=== PATIENT | male | born 1975 | race Caucasian/White ===

== ENCOUNTER 2018-02-05 10:10 | Emergency (ER) | payer BC, OTHER ==
--- NOTE | 2018-02-05 11:05 | EDM.PDOC ---
ED HPI GENERAL MEDICAL PROBLEM - General Chief Complaint: Lower Extremity Injury/Pain Stated Complaint: left foot injury Time Seen by Provider: 02/05/18 10:45 Source of Information: Reports: Patient History Limitations: Reports: No Limitations - History of Present Illness INITIAL COMMENTS - FREE TEXT/NARRATIVE: Patient is a 42-year-old male who comes in with crush injury to left foot patient was working at [employer] at [employer] and a [employer] and weighed about 250 pounds fell on his foot is deformed the left foot patient complained of moderate pain at this time patient was examined and treated Onset: Today, Sudden Duration: Hour(s):, Constant Location: Reports: Lower Extremity, Left Quality: Reports: Throbbing (Pain 6 out of 10) Severity: Moderate Improves with: Reports: Cold Therapy, Other (Elevation) Worsens with: Reports: Movement Context: Reports: Trauma Associated Symptoms: Reports: No Other Symptoms Treatments [employer]: Reports: NSAIDS Left Foot Pain Score (Numeric/FACES): 6 - Related Data Allergies Allergy/AdvReac Type Severity Reaction Status Date / Time Penicillins Allergy Airway Verified 02/05/18 10:12 Tightness venom-honey bee Allergy Swelling Verified 02/05/18 10:12 [bee venom (honey bee)] Home Meds: Home Meds Ibuprofen [Advil] 400 mg PO Q6H PRN 07/25/15 [History] Multivitamin [Multivitamins] 1 tab PO DAILY 07/25/15 [History] Acetaminophen [Acetaminophen Extra Strength] 1,000 mg PO Q4HR PRN 02/05/18 [ History] Past Medical History Cardiovascular History: Reports: Heart Murmur Respiratory History: Reports: Pneumonia, Recurrent Gastrointestinal History: Reports: Other (See Below) Other Gastrointestinal History: Appendecitis - Past Surgical History HEENT Surgical History: Reports: Other (See Below) Other HEENT Surgeries/Procedures: [place] tooth extraction Musculoskeletal Surgical History: Reports: Ganglion Cyst, Shoulder Surgery Social & Family History - Tobacco Use Smoking Status *Q: Never Smoker - Caffeine Use Caffeine Use: Reports: None - Alcohol Use Days Per Week of Alcohol Use: 0 - Recreational Drug Use Recreational Drug Use: No Review of Systems - Review of Systems Review Of Systems: See Below Constitutional: Reports: No Symptoms Eyes: Reports: No Symptoms Ears: Reports: No Symptoms Nose: Reports: No Symptoms Mouth/Throat: Reports: No Symptoms Respiratory: Reports: No Symptoms Cardiovascular: Reports: No Symptoms GI/Abdominal: Reports: No Symptoms Genitourinary: Reports: No Symptoms Musculoskeletal: Reports: No Symptoms Skin: Reports: No Symptoms Neurological: Reports: No Symptoms Psychiatric: Reports: No Symptoms ED EXAM, GENERAL - Physical Exam Exam: See Below Exam Limited By: No Limitations General Appearance: Alert, WD/WN, No Apparent Distress Eye Exam: Bilateral Eye: EOMI, PERRL Ears: Normal External Exam, Normal Canal, Hearing Grossly Normal, Normal TMs Ear Exam: Bilateral Ear: Auricle Normal, Canal Normal, TM normal Nose: Normal Inspection, Normal Mucosa, No Blood Head: Atraumatic, Normocephalic Neck: Normal Inspection, Supple, Non-Tender, Full Range of Motion Respiratory/Chest: No Respiratory Distress, Lungs Clear, Normal Breath Sounds, No Accessory Muscle Use, Chest Non-Tender Cardiovascular: Normal Peripheral Pulses, Regular Rate, Rhythm, No Edema, No Gallop, No JVD, No Murmur, No Rub GI/Abdominal: Normal Bowel Sounds, Soft, Non-Tender, No Organomegaly, No Distention, No Abnormal Bruit, No Mass (Male) Exam: Deferred Rectal (Males) Exam: Deferred Back Exam: Normal Inspection Extremities: Pedal Edema (Secondary to trauma) Neurological: Alert, Oriented, CN II-XII Intact, Normal Cognition, Normal Gait, Normal Reflexes, No Motor/Sensory Deficits Psychiatric: Normal Affect, Normal Mood Skin Exam: Warm, Dry, Intact, Normal Color, No Rash Lymphatic: No Adenopathy Course - Orders/Labs/Meds Orders: Active Orders 24 hr Category Date Time Status Foot Comp Min 3V Lt [CR] Stat Exams 02/05/18 10:17 Taken Departure - Departure Time of Disposition: 11:11 Disposition: Home, Self-Care 01 Condition: Fair Clinical Impression: Crush injury of left foot - Discharge Information Referrals: Marcelle Mithcell PA-C [Primary Care Provider] - Care Plan Goals: Patient for placed in a [employer] send home to elevate foot and apply ice for the next 3 days Ultram 50 mg one tablet every 6 hours given for pain control patient to apply ice to dorsal aspect of left foot 20 minutes on and 20 minutes off while healing follow-up with primary in about a week we'll release to work back on Thursday - My Orders Last 24 Hours: My Active Orders 02/05/18 10:17 Foot Comp Min 3V Lt [CR] Stat - Assessment/Plan Last 24 Hours: My Active Orders 02/05/18 10:17 Foot Comp Min 3V Lt [CR] Stat
[2018-02-05 19:43] VITALS: BP 117/68
== END 2018-02-05 11:35 | disposition home or self-care (01) ==
LOC: LL.ED 10:10
DX: S97.82XA Crushing injury of left foot, initial encounter (principal); Z88.0 Allergy status to penicillin; Z91.030 Bee allergy status; W23.1XXA Caught, crushed, jammed, or pinched between stationary objects, initial encounter
CPT/HCPCS: 73630-LT; 99283

== ENCOUNTER 2018-11-15 02:03 | Emergency (ER) | payer BC, OTHER ==
[2018-11-15] MEDS ORDERED: Morphine 2 MG/ML Syringe IVPUSH ONE (02:42)
[2018-11-15] MEDS: Sodium Chloride 0.9% 10 ML Syringe FLUSH PRN ×3 (02:50→04:51)
--- NOTE | 2018-11-15 02:50 | EDM.PDOC ---
ED HPI GENERAL MEDICAL PROBLEM - General Chief Complaint: General Stated Complaint: right side pain Time Seen by Provider: 11/15/18 02:03 Source of Information: Reports: Patient History Limitations: Reports: No Limitations - History of Present Illness INITIAL COMMENTS - FREE TEXT/NARRATIVE: Patient is a 43-year-old gentleman who was brought in by his with chief complaint of right upper quadrant pain patient states that this started about an hour prior to coming in was intolerable and was brought in by his for evaluation patient states that the pain was 9 out of 10 and has subsided of a bit Onset: Sudden Duration: Minutes:, Improving Location: Reports: Abdomen Quality: Reports: Ache, Pressure, Stabbing Severity: Moderate Improves with: Reports: None Worsens with: Reports: None Context: Reports: Other (Unknown) Associated Symptoms: Reports: Nausea/Vomiting Right Abdomen Pain Score (Numeric/FACES): 9 - Related Data Allergies Allergy/AdvReac Type Severity Reaction Status Date / Time Penicillins Allergy Airway Verified 11/15/18 02:04 Tightness venom-honey bee Allergy Swelling Verified 11/15/18 02:04 [bee venom (honey bee)] Home Meds: Home Meds Ibuprofen [Advil] 400 mg PO Q6H PRN 07/25/15 [History] Multivitamin [Multivitamins] 1 tab PO DAILY 07/25/15 [History] Acetaminophen [Acetaminophen Extra Strength] 1,000 mg PO Q4HR PRN 02/05/18 [ History] Cyclobenzaprine [Flexeril] 10 mg PO TID 10 Days #30 tab 11/15/18 [Rx] Ketorolac [Toradol] 10 mg PO Q6H 5 Days #20 tab 11/15/18 [Rx] Past Medical History Cardiovascular History: Reports: Heart Murmur Respiratory History: Reports: Pneumonia, Recurrent Gastrointestinal History: Reports: Other (See Below) Other Gastrointestinal History: Appendecitis - Past Surgical History HEENT Surgical History: Reports: Other (See Below) Other HEENT Surgeries/Procedures: [place] tooth extraction Musculoskeletal Surgical History: Reports: Ganglion Cyst, Shoulder Surgery Social & Family History - Tobacco Use Smoking Status *Q: Never Smoker - Caffeine Use Caffeine Use: Reports: None ED ROS GENERAL - Review of Systems Review Of Systems: See Below Constitutional: Reports: No Symptoms HEENT: Reports: No Symptoms Respiratory: Reports: No Symptoms Cardiovascular: Reports: No Symptoms Endocrine: Reports: No Symptoms GI/Abdominal: Reports: Abdominal Pain : Reports: No Symptoms Musculoskeletal: Reports: No Symptoms Skin: Reports: No Symptoms Neurological: Reports: No Symptoms Psychiatric: Reports: No Symptoms Hematologic/Lymphatic: Reports: No Symptoms ED EXAM, GENERAL - Physical Exam Exam: See Below Exam Limited By: No Limitations General Appearance: Alert, WD/WN Ears: Normal External Exam, Normal Canal, Hearing Grossly Normal, Normal TMs Nose: Normal Inspection, Normal Mucosa, No Blood Throat/Mouth: Normal Inspection, Normal Lips, Normal Teeth, Normal Gums, Normal Oropharynx, Normal Voice, No Airway Compromise Head: Atraumatic, Normocephalic Neck: Normal Inspection, Supple, Non-Tender, Full Range of Motion Respiratory/Chest: No Respiratory Distress, Lungs Clear, Normal Breath Sounds, No Accessory Muscle Use, Chest Non-Tender Cardiovascular: Normal Peripheral Pulses, Regular Rate, Rhythm, No Edema, No Gallop, No JVD, No Murmur, No Rub GI/Abdominal: Normal Bowel Sounds, Soft, Pelvis Stable, Tender (right upper quadrant) (Male) Exam: Deferred Rectal (Males) Exam: Deferred Extremities: Normal Inspection, Normal Range of Motion, Non-Tender, Normal Capillary Refill, No Pedal Edema Neurological: Alert, Oriented, CN II-XII Intact, Normal Cognition, Normal Gait, Normal Reflexes, No Motor/Sensory Deficits Skin Exam: Warm, Dry, Intact, Normal Color, No Rash Course - Vital Signs Last Recorded V/S: Last Vital Signs Temp 97.5 F 11/15/18 02:05 Pulse 59 L 11/15/18 08:30 Resp 14 11/15/18 08:30 BP 116/65 11/15/18 08:30 Pulse Ox 97 11/15/18 08:30 - Orders/Labs/Meds Orders: Active Orders 24 hr Category Date Time Status Abdomen w Cont [CT] Stat Exams 11/15/18 02:57 Taken Saline Lock Insert [OM.PC] Stat Oth 11/15/18 02:40 Ordered Labs: Laboratory Tests 11/15/18 11/15/18 11/15/18 Range/Units 03:00 03:00 03:00 WBC 6.7 (4.0-10.2) K/uL RBC 4.73 (4.33-5.41) M/uL Hgb 14.8 (13.1-16.8) g/dL Hct 41.8 (39.0-49.0) % MCV 88.4 (84.0-98.0) fL MCH 31.3 (28.2-33.3) pg MCHC 35.4 (31.7-36.0) g/dL RDW 12.2 (11.2-14.1) % Plt Count 205 (150-350) K/uL Neut % (Auto) 54.5 (45.0-80.0) % Lymph % (Auto) 29.1 (10.0-50.0) % Forrest % (Auto) 9.4 (2.0-14.0) % Eos % (Auto) 6.1 H (0.0-5.0) % Baso % (Auto) 0.9 (0.0-2.0) % Neut # (Auto) 3.67 (1.40-7.00) K/uL Lymph # (Auto) 1.96 (0.50-3.50) K/uL Forrest # (Auto) 0.63 (0.00-1.00) K/uL Eos # (Auto) 0.41 (0.00-0.50) K/uL Baso # (Auto) 0.06 (0.00-0.20) K/uL Sodium 142 (136-145) mmol/L Potassium 3.6 (3.5-5.1) mmol/L Chloride 105 (98-107) mmol/L Carbon Dioxide 26.0 (21.0-32.0) mmol/L BUN 17 (7-18) mg/dL Creatinine 1.21 H (0.51-1.17) mg/dL Est Cr Clr Drug Dosing 79.53 mL/min Estimated GFR (MDRD) > 60 mL/min Glucose 123 H (74-106) mg/dL Calcium 8.3 L (8.5-10.1) mg/dL Magnesium 1.8 (1.8-2.4) mg/dL Total Bilirubin 0.4 (0.2-1.0) mg/dL AST 22 (15-37) U/L ALT 51 (12-78) U/L Alkaline Phosphatase 109 (46-116) IU/L Total Protein 7.2 (6.4-8.2) g/dL Albumin 3.7 (3.4-5.0) g/dL Amylase 54 (25-115) U/L Lipase 171 (73-393) U/L Specimen Type Urine Color Urine Appearance Urine pH (5.0-9.0) Ur Specific [place] (1.005-1.030) Urine Protein (NEGATIVE) mg/dL Urine Glucose (UA) (NEGATIVE) mg/dL Urine Ketones (NEGATIVE) mg/dL Urine Occult Blood (NEGATIVE) Urine Nitrite (NEGATIVE) Urine Bilirubin (NEGATIVE) Urine Urobilinogen (0.2-1.0) E.U./dL Ur Leukocyte Esterase (NEGATIVE) Urine RBC /HPF Urine WBC /HPF Ur Epithelial Cells /LPF Urine Bacteria (NONE TO FEW) /HPF 11/15/18 Range/Units 04:40 WBC (4.0-10.2) K/uL RBC (4.33-5.41) M/uL Hgb (13.1-16.8) g/dL Hct (39.0-49.0) % MCV (84.0-98.0) fL MCH (28.2-33.3) pg MCHC (31.7-36.0) g/dL RDW (11.2-14.1) % Plt Count (150-350) K/uL Neut % (Auto) (45.0-80.0) % Lymph % (Auto) (10.0-50.0) % Forrest % (Auto) (2.0-14.0) % Eos % (Auto) (0.0-5.0) % Baso % (Auto) (0.0-2.0) % Neut # (Auto) (1.40-7.00) K/uL Lymph # (Auto) (0.50-3.50) K/uL Forrest # (Auto) (0.00-1.00) K/uL Eos # (Auto) (0.00-0.50) K/uL Baso # (Auto) (0.00-0.20) K/uL Sodium (136-145) mmol/L Potassium (3.5-5.1) mmol/L Chloride (98-107) mmol/L Carbon Dioxide (21.0-32.0) mmol/L BUN (7-18) mg/dL Creatinine (0.51-1.17) mg/dL Est Cr Clr Drug Dosing mL/min Estimated GFR (MDRD) mL/min Glucose (74-106) mg/dL Calcium (8.5-10.1) mg/dL Magnesium (1.8-2.4) mg/dL Total Bilirubin (0.2-1.0) mg/dL AST (15-37) U/L ALT (12-78) U/L Alkaline Phosphatase (46-116) IU/L Total Protein (6.4-8.2) g/dL Albumin (3.4-5.0) g/dL Amylase (25-115) U/L Lipase (73-393) U/L Specimen Type Urinvoid Urine Color Yellow Urine Appearance Clear Urine pH 6.0 (5.0-9.0) Ur Specific [place] 1.015 (1.005-1.030) Urine Protein Negative (NEGATIVE) mg/dL Urine Glucose (UA) Negative (NEGATIVE) mg/dL Urine Ketones Negative (NEGATIVE) mg/dL Urine Occult Blood Small H (NEGATIVE) Urine Nitrite Negative (NEGATIVE) Urine Bilirubin Negative (NEGATIVE) Urine Urobilinogen 0.2 (0.2-1.0) E.U./dL Ur Leukocyte Esterase Negative (NEGATIVE) Urine RBC 0-5 /HPF Urine WBC Not seen /HPF Ur Epithelial Cells Not seen /LPF Urine Bacteria Not seen (NONE TO FEW) /HPF Meds: Medications Discontinued Medications Generic Name Dose Route Start Last Admin Trade Name Freq PRN Reason Stop Dose Admin Cyclobenzaprine HCl 10 mg 11/15/18 05:54 11/15/18 05:59 Flexeril PO 11/15/18 05:55 10 mg ONETIME ONE Administration Iopamidol 100 ml 11/15/18 04:00 11/15/18 05:06 Isovue-300 (61%) IVPUSH 11/15/18 04:01 100 ml ONETIME ONE Administration Ketorolac Tromethamine 30 mg 11/15/18 05:53 11/15/18 05:59 Toradol IVPUSH 11/15/18 05:54 30 mg ONETIME ONE Administration Morphine Sulfate 2 mg 11/15/18 02:42 11/15/18 02:49 Morphine IVPUSH 11/15/18 02:43 2 mg ONETIME ONE Administration Morphine Sulfate 1 mg 11/15/18 03:24 11/15/18 04:51 Morphine IVPUSH 1 mg Q1H PRN Administration Pain Ondansetron HCl 4 mg 11/15/18 02:53 11/15/18 02:56 Zofran IVPUSH 11/15/18 02:54 4 mg ONETIME ONE Administration Sodium Chloride 10 ml 11/15/18 02:41 11/15/18 04:51 Saline Flush FLUSH 10 ml ASDIRECTED PRN Administration Keep Vein Open Departure - Departure Time of Disposition: 02:00 Disposition: Home, Self-Care 01 Clinical Impression: Abdominal pain Qualifiers: Abdominal location: generalized Qualified Code(s): R10.84 - Generalized abdominal pain - Discharge Information *PRESCRIPTION DRUG MONITORING PROGRAM REVIEWED*: Not Applicable *COPY OF PRESCRIPTION DRUG MONITORING REPORT IN PATIENT TANIA: Not Applicable Prescriptions: Cyclobenzaprine [Flexeril] 10 mg PO TID 10 Days #30 tab Ketorolac [Toradol] 10 mg PO Q6H 5 Days #20 tab Instructions: Cyclobenzaprine tablets, Abdominal Pain, Adult, Ketorolac tablets Referrals: Marcelle Mitchell PA-C [Primary Care Provider] - Forms: ED Department Discharge Care Plan Goals: Abdominal wall pain Patient sent home with medications and to follow up with PCP as needed. - My Orders Last 24 Hours: My Active Orders 11/15/18 02:40 Saline Lock Insert [OM.PC] Stat 11/15/18 02:57 Abdomen w Cont [CT] Stat - Assessment/Plan Last 24 Hours: My Active Orders 11/15/18 02:40 Saline Lock Insert [OM.PC] Stat 11/15/18 02:57 Abdomen w Cont [CT] Stat
[2018-11-15] MEDS ORDERED: Ondansetron 4 MG/2 ML SDV IVPUSH ONE (02:53)
[2018-11-15 03:14] LABS: CHLORIDE,CL 105 mmol/L (98-107); SODIUM,NA 142 mmol/L (136-145)
[2018-11-15] MEDS: Morphine 2 MG/ML Syringe IVPUSH PRN ×2 (03:52→04:51)
[2018-11-15] MEDS ORDERED: Iopamidol 612 MG/ML 100 ML Bottle IVPUSH ONE (04:00)
[2018-11-15] MEDS ORDERED: Ketorolac 30 MG/ML SDV IVPUSH ONE (05:53)
[2018-11-15] MEDS ORDERED: Cyclobenzaprine 10 MG Tab PO ONE (05:54)
[2018-11-15 08:34] VITALS: BP 116/65
== END 2018-11-15 08:45 | disposition home or self-care (01) ==
LOC: LL.ED 02:03
DX: R10.11 Right upper quadrant pain (principal); Z88.0 Allergy status to penicillin; Z91.030 Bee allergy status
CPT/HCPCS: 36415; 74160; 80053; 81001; 82150; 83690; 83735; 85025; 96374; 96375; 96376; 99284; A9270-GY; J1885; J2270; J2405; Q9967

== ENCOUNTER 2023-04-10 12:45 | Emergency (ER) | payer OTHER, BC ==
[2023-04-10 12:56] VITALS: BP 122/85; PULSE 77
[2023-04-10] MEDS: Acetaminophen 500 MG Tab PO ONE (13:42)
[2023-04-10] MEDS: Ketorolac 10 MG Tab PO ONE (13:43)
[2023-04-10] MEDS: Silver Sulfadiazine 1% Crm 20 GM Tube TOP ONE (13:43)
== END 2023-04-10 13:52 | disposition home or self-care (01) ==
LOC: LL.ED 12:45
DX: T22.511A Corrosion of first degree of right forearm, initial encounter (principal); Z88.0 Allergy status to penicillin; Z88.1 Allergy status to other antibiotic agents; Z91.038 Other insect allergy status
CPT/HCPCS: 16000; 99283; A9270-GY